=== PATIENT | female | born 1945 | race Caucasian/White ===

== ENCOUNTER 2017-08-19 02:14 | Outpatient (CLI) | payer MEDICARE ==
[~2017-08-19 02:14] MED LIST: ALBU8HFA PO; ASPI81TA52 PO; ATOR80TA PO; CARV-50 PO; CHOL10002 PO; GLIM2TAB2 PO; LEVO50TA67 PO; LISI-222 PO; MULT-1085 PO; OMEP-84 PO; SITA1TAB6 PO; VENL150C2 PO
== END 2017-08-19 23:59 | disposition home or self-care (01) ==
LOC: DIABETIC 02:14
PROVIDERS: ATTEND Physician Assistant
DX: E11.22 Type 2 diabetes mellitus with diabetic chronic kidney disease (principal); I12.9 Hypertensive chronic kidney disease with stage 1 through stage 4 chronic kidney disease, or unspecified chronic kidney disease; N18.9 Chronic kidney disease, unspecified; J44.9 Chronic obstructive pulmonary disease, unspecified; Z87.891 Personal history of nicotine dependence
CPT/HCPCS: G0108

== ENCOUNTER 2018-03-13 06:18 | Inpatient (IN) | payer MEDICARE ==
[~2018-03-13] VITALS: Ht 162.6 cm; Wt 69.5 kg
[2018-03-13 07:11] LABS: BASOPHILS # (AUTO) 0.1 X10'3 (0-0.2); BASOPHILS % (AUTO) 0.8 % (0-1); EOSINOPHILS # (AUTO) 0.6 X10'3 (0-0.9); EOSINOPHILS % (AUTO) 7.8 % (0-6); HEMATOCRIT 33.2 % (35.0-45.0); HEMOGLOBIN 10.7 g/dl (12.0-16.0); LYMPHOCYTES # (AUTO) 1.7 X10'3 (1.1-4.8); LYMPHOCYTES % (AUTO) 20.8 % (21-51); MEAN CORPUSCULAR HGB CONC 32.2 % (33.0-36.5); MEAN CORPUSCULAR VOLUME 93.1 FL (78-98); MEAN PLATELET VOLUME 6.8 FL (7.4-10.4); MONOCYTES # (AUTO) 0.7 X10'3 (0-0.9); MONOCYTES % (AUTO) 8.2 % (2-12); NEUTROPHILS # (AUTO) 5.1 X10'3 (1.8-7.7); NEUTROPHILS % (AUTO) 62.4 % (42-75); PLATELET COUNT 339 X10'3 (140-440); RED BLOOD COUNT 3.57 X10'6 (4.20-5.60); RED CELL DISTRIBUTION WIDTH 21.9 % (11.5-14.5); WHITE BLOOD COUNT 8.1 X10'3 (4.5-11.0)
[2018-03-13 07:27] LABS: ALANINE AMINOTRANSFERASE 21 U/L (12-78); ALBUMIN/GLOBULIN RATIO 1.1 (1.1-1.5); ALKALINE PHOSPHATASE 72 IU/L (46-116); ANION GAP 8 (8-16); ASPARTATE AMINO TRANSFERASE 16 U/L (10-37); BILIRUBIN,TOTAL 0.4 MG/DL (0.1-1.0); BLOOD UREA NITROGEN 8 MG/DL (7-18); BUN/CREATININE RATIO 6.3 (6.6-38.0); CALCIUM 9.6 MG/DL (8.5-10.1); CHLORIDE 101 MMOL/L (99-107); CREATININE 1.27 MG/DL (0.40-0.90); GLUCOSE 200 MG/DL (70-104); POTASSIUM 4.4 MMOL/L (3.5-5.1); SODIUM 141 MMOL/L (135-145); TOTAL CARBON DIOXIDE 31.8 MMOL/L (24-32); TOTAL PROTEIN 7.8 G/DL (6.4-8.2); eGFR 41 ML/MIN
[2018-03-13 07:37] LABS: ANISOCYTOSIS 3+; ELLIPTOCYTES FEW; PLATELET ESTIMATE NORMAL
[2018-03-13 07:55] LABS: INR 0.9 INR; PARTIAL THROMBOPLASTIN TIME 23 SECONDS (22-32); PROTHROMBIN TIME 9.7 SECONDS (9.0-12.0)
[2018-03-13] MEDS ORDERED: LORazepam 2 mg/ml vial IV ONE (08:00)
[2018-03-13] MEDS ORDERED: iohexol 350MG/ML 100ml bottle IV ONE (08:43)
[2018-03-13] MEDS ORDERED: furosemide 10 MG/1 ML 10ml inj IV ONE (10:20)
[2018-03-13] MEDS ORDERED: acetaminophen 325mg tablet PO ONE (11:10)
[2018-03-13] MEDS ORDERED: magnesium hydroxide 30ml (MOM) UD suspension PO PRN (13:10)
[2018-03-13] MEDS ORDERED: mag hydrox/Alum hydrox/simeth 30ml oral suspension PO PRN (13:10)
[2018-03-13] MEDS ORDERED: morphine 2 MG/ML inj. syringe IV PRN (13:10)
[2018-03-13] MEDS ORDERED: dextrose 50%-water 50ml dispensing syringe IV PRN ×2 (13:10)
[2018-03-13] MEDS ORDERED: HYDROcodone/acetaminophen 5mg/325mg tablet PO PRN (13:10)
[2018-03-13] MEDS ORDERED: acetaminophen 325mg tablet PO PRN (13:10)
[2018-03-13] MEDS ORDERED: glucagon, human recombinant 1mg kit SUBCUT PRN (13:10)
[2018-03-13] MEDS ORDERED: dextrose ORAL solution 15 GM/59 ML bottle PO PRN ×2 (13:10)
[2018-03-13] MEDS ORDERED: MESSAGE TO PHARMACY PO ONE (13:10)
[2018-03-13] MEDS ORDERED: ondansetron/PF 4mg/2ml inj IV PRN (13:10)
[2018-03-13 13:40] LABS: HEMOGLOBIN A1C 6.8 % (4.5-6.2)
[2018-03-13 15:26] VITALS: BP 146/81
[2018-03-13] MEDS: ipratropium/albuterol 3ml nebule NEB PRN ×2 (17:42→21:32)
[2018-03-13 18:00] VITALS: BP 101/53
[2018-03-13] MEDS ORDERED: albuterol 2.5 MG/3 ML nebule NEB PRN (21:50)
[2018-03-13 22:00] VITALS: BP 132/70
[2018-03-13] MEDS: insulin glargine (Lantus) pen - multi-dose SQ SCH (22:37)
[2018-03-14] MEDS: ipratropium/albuterol 3ml nebule NEB SCH ×7 (01:27→23:14)
[2018-03-14 02:00] VITALS: BP 126/70
[2018-03-14 07:00] VITALS: BP 136/63
[2018-03-14 07:19] LABS: BASOPHILS % (AUTO) 0.4 % (0-1); EOSINOPHILS # (AUTO) 0.8 X10'3 (0-0.9); EOSINOPHILS % (AUTO) 10.4 % (0-6); HEMATOCRIT 33.6 % (35.0-45.0); HEMOGLOBIN 10.8 g/dl (12.0-16.0); LYMPHOCYTES # (AUTO) 1.7 X10'3 (1.1-4.8); LYMPHOCYTES % (AUTO) 20.8 % (21-51); MEAN CORPUSCULAR HEMOGLOBIN 29.7 PG (27.0-31.0); MEAN CORPUSCULAR VOLUME 92.8 FL (78-98); MEAN PLATELET VOLUME 7.2 FL (7.4-10.4); MONOCYTES # (AUTO) 0.9 X10'3 (0-0.9); MONOCYTES % (AUTO) 10.8 % (2-12); NEUTROPHILS # (AUTO) 4.7 X10'3 (1.8-7.7); NEUTROPHILS % (AUTO) 57.6 % (42-75); PLATELET COUNT 296 X10'3 (140-440); RED BLOOD COUNT 3.62 X10'6 (4.20-5.60); RED CELL DISTRIBUTION WIDTH 21.5 % (11.5-14.5); WHITE BLOOD COUNT 8.1 X10'3 (4.5-11.0)
[2018-03-14 07:44] LABS: ALANINE AMINOTRANSFERASE 24 U/L (12-78); ALBUMIN 3.8 G/DL (3.4-5.0); ALKALINE PHOSPHATASE 84 IU/L (46-116); ANION GAP 9 (8-16); ASPARTATE AMINO TRANSFERASE 15 U/L (10-37); BILIRUBIN,TOTAL 0.6 MG/DL (0.1-1.0); BLOOD UREA NITROGEN 19 MG/DL (7-18); BUN/CREATININE RATIO 13.3 (6.6-38.0); CALCIUM 9.8 MG/DL (8.5-10.1); CHLORIDE 95 MMOL/L (99-107); CHOL/HDL RATIO 2.9 (0.00-4.99); CHOLESTEROL 209 MG/DL (0-200); CREATININE 1.43 MG/DL (0.40-0.90); GLUCOSE 191 MG/DL (70-104); HDL CHOLESTEROL 72 MG/DL (35-60); LDL CHOLESTEROL 118 MG/DL (50-100); SODIUM 136 MMOL/L (135-145); TOTAL CARBON DIOXIDE 31.7 MMOL/L (24-32); TOTAL PROTEIN 7.5 G/DL (6.4-8.2); TRIGLYCERIDES 190 MG/DL (20-135); eGFR 36 ML/MIN
[2018-03-14] MEDS ORDERED: furosemide 10 MG/1 ML 10ml inj IV SCH (08:00)
[2018-03-14] MEDS: enoxaparin 40mg/0.4ml syringe SUBCUT SCH (08:44)
[2018-03-14] MEDS: insulin Lispro (HumaLOG) vial - multi-dose SQ SCH ×4 (08:59→21:24)
[2018-03-14] MEDS ORDERED: LIRA0.6P2 SQ (09:11)
[2018-03-14 10:04] LABS: ANISOCYTOSIS 3+; PLATELET ESTIMATE NORMAL
[2018-03-14 10:05] LABS: ELLIPTOCYTES 1+; POIKILOCYTOSIS 1+; POLYCHROMASIA FEW
[2018-03-14 11:00] VITALS: BP 122/65
[2018-03-14] MEDS ORDERED: ALPRAZolam 0.5mg tablet PO PRN (13:45)
[2018-03-14] MEDS: levoFLOXACIN 500mg tablet PO SCH (14:19)
[2018-03-14] MEDS: methylPREDNISolone sod succ/PF 40mg inj. IV SCH ×2 (14:21→19:15)
[2018-03-14 15:00] VITALS: BP 142/77
[2018-03-14 19:00] VITALS: BP 124/67
[2018-03-14] MEDS ORDERED: furosemide 40mg/4ml inj IV SCH (19:48)
[2018-03-14] MEDS: insulin glargine (Lantus) pen - multi-dose SQ SCH (21:26)
[2018-03-14 23:00] VITALS: BP 146/68
[2018-03-15] VITALS (19 sets, daily range): BP systolic 89–134; BP diastolic 46–92
[2018-03-15] MEDS: ipratropium/albuterol 3ml nebule NEB SCH ×4 (03:59→19:06)
[2018-03-15 06:45] LABS: BASOPHILS % (AUTO) 0.3 % (0-1); EOSINOPHILS % (AUTO) 0.3 % (0-6); LYMPHOCYTES # (AUTO) 0.8 X10'3 (1.1-4.8); LYMPHOCYTES % (AUTO) 12.1 % (21-51); MEAN CORPUSCULAR HEMOGLOBIN 29.9 PG (27.0-31.0); MEAN CORPUSCULAR HGB CONC 32.3 % (33.0-36.5); MEAN CORPUSCULAR VOLUME 92.6 FL (78-98); MEAN PLATELET VOLUME 7.1 FL (7.4-10.4); MONOCYTES # (AUTO) 0.5 X10'3 (0-0.9); MONOCYTES % (AUTO) 7.9 % (2-12); NEUTROPHILS # (AUTO) 5.3 X10'3 (1.8-7.7); NEUTROPHILS % (AUTO) 79.4 % (42-75); PLATELET COUNT 341 X10'3 (140-440); RED BLOOD COUNT 3.68 X10'6 (4.20-5.60); WHITE BLOOD COUNT 6.7 X10'3 (4.5-11.0)
[2018-03-15 06:54] LABS: ALANINE AMINOTRANSFERASE 23 U/L (12-78); ALBUMIN 3.8 G/DL (3.4-5.0); ALKALINE PHOSPHATASE 85 IU/L (46-116); ANION GAP 11 (8-16); ASPARTATE AMINO TRANSFERASE 15 U/L (10-37); BILIRUBIN,TOTAL 0.6 MG/DL (0.1-1.0); BLOOD UREA NITROGEN 38 MG/DL (7-18); BUN/CREATININE RATIO 16.2 (6.6-38.0); CALCIUM 9.2 MG/DL (8.5-10.1); CHLORIDE 92 MMOL/L (99-107); CREATININE 2.34 MG/DL (0.40-0.90); GLUCOSE 354 MG/DL (70-104); POTASSIUM 4.6 MMOL/L (3.5-5.1); SODIUM 132 MMOL/L (135-145); TOTAL CARBON DIOXIDE 28.9 MMOL/L (24-32); TOTAL PROTEIN 7.8 G/DL (6.4-8.2); eGFR 20 ML/MIN
[2018-03-15] MEDS: enoxaparin 40mg/0.4ml syringe SUBCUT SCH (08:05)
[2018-03-15] MEDS: methylPREDNISolone sod succ/PF 40mg inj. IV SCH ×2 (08:06→23:30)
[2018-03-15] MEDS: insulin Lispro (HumaLOG) vial - multi-dose SQ SCH ×3 (08:16→19:21)
[2018-03-15] MEDS ORDERED: metoprolol tartrate 1mg/ml inj IV ONE ×4 (08:30→16:40)
[2018-03-15] MEDS ORDERED: ALPRAZolam 0.5mg tablet PO PRN (08:30)
[2018-03-15] MEDS: metoprolol tartrate 1mg/ml inj IV SCH ×3 (08:49→09:40)
[2018-03-15] MEDS: ALPRAZolam 0.5mg tablet PO PRN ×2 (09:22→18:20)
[2018-03-15] MEDS: levoFLOXACIN 500mg tablet PO SCH (10:54)
[2018-03-15] MEDS ORDERED: amiodarone 150mg/dext, iso-os 100 ML IV ONE (17:30)
[2018-03-15] MEDS: amiodarone/D5 360MG/200ML BAG 200 ML IV SCH ×2 (17:48→23:36)
[2018-03-15] MEDS: apixaban 5mg tablet PO SCH (22:58)
[2018-03-15] MEDS: carvedilol 6.25mg tablet PO SCH (23:00)
[2018-03-15] MEDS: lactobacillus rhamnosus 10,000 MMU CELLS/CAPSULE PO SCH (23:00)
[2018-03-15] MEDS: insulin glargine (Lantus) pen - multi-dose SQ SCH (23:29)
[2018-03-16] VITALS (12 sets, daily range): BP systolic 92–151; BP diastolic 45–78
[2018-03-16] MEDS: ipratropium/albuterol 3ml nebule NEB SCH ×3 (03:12→07:42)
[2018-03-16] MEDS: amiodarone/D5 360MG/200ML BAG 200 ML IV SCH (05:38)
[2018-03-16 07:17] LABS: BASOPHILS % (AUTO) 0 % (0-1); EOSINOPHILS # (AUTO) 0.1 X10'3 (0-0.9); EOSINOPHILS % (AUTO) 0.7 % (0-6); HEMATOCRIT 33.5 % (35.0-45.0); HEMOGLOBIN 10.9 g/dl (12.0-16.0); LYMPHOCYTES # (AUTO) 0.9 X10'3 (1.1-4.8); LYMPHOCYTES % (AUTO) 8.7 % (21-51); MEAN CORPUSCULAR HEMOGLOBIN 30.2 PG (27.0-31.0); MEAN CORPUSCULAR HGB CONC 32.6 % (33.0-36.5); MEAN CORPUSCULAR VOLUME 92.8 FL (78-98); MEAN PLATELET VOLUME 7.3 FL (7.4-10.4); MONOCYTES # (AUTO) 0.3 X10'3 (0-0.9); MONOCYTES % (AUTO) 3.4 % (2-12); NEUTROPHILS # (AUTO) 8.8 X10'3 (1.8-7.7); NEUTROPHILS % (AUTO) 87.2 % (42-75); PLATELET COUNT 326 X10'3 (140-440); RED BLOOD COUNT 3.61 X10'6 (4.20-5.60); RED CELL DISTRIBUTION WIDTH 22.4 % (11.5-14.5); WHITE BLOOD COUNT 10.1 X10'3 (4.5-11.0)
[2018-03-16 07:35] LABS: ALANINE AMINOTRANSFERASE 16 U/L (12-78); ALBUMIN 3.4 G/DL (3.4-5.0); ALBUMIN/GLOBULIN RATIO 0.9 (1.1-1.5); ALKALINE PHOSPHATASE 72 IU/L (46-116); ANION GAP 9 (8-16); ASPARTATE AMINO TRANSFERASE 18 U/L (10-37); BILIRUBIN,TOTAL 0.4 MG/DL (0.1-1.0); BLOOD UREA NITROGEN 53 MG/DL (7-18); BUN/CREATININE RATIO 22.5 (6.6-38.0); CHLORIDE 93 MMOL/L (99-107); CREATININE 2.36 MG/DL (0.40-0.90); GLUCOSE 333 MG/DL (70-104); POTASSIUM 5.1 MMOL/L (3.5-5.1); SODIUM 132 MMOL/L (135-145); TOTAL CARBON DIOXIDE 30.4 MMOL/L (24-32); eGFR 20 ML/MIN
[2018-03-16] MEDS: methylPREDNISolone sod succ/PF 40mg inj. IV SCH ×2 (07:38→21:38)
[2018-03-16] MEDS: carvedilol 6.25mg tablet PO SCH (07:38)
[2018-03-16] MEDS: lactobacillus rhamnosus 10,000 MMU CELLS/CAPSULE PO SCH ×2 (07:38→21:37)
[2018-03-16] MEDS: apixaban 5mg tablet PO SCH ×2 (07:38→21:37)
[2018-03-16] MEDS: insulin Lispro (HumaLOG) vial - multi-dose SQ SCH ×3 (09:49→21:58)
[2018-03-16] MEDS ORDERED: levalbuterol 0.63mg/3ml nebule IH PRN (10:35)
[2018-03-16] MEDS: levalbuterol 0.63mg/3ml nebule IH SCH ×2 (16:04→20:36)
[2018-03-16] MEDS ORDERED: lisinopril 5mg tablet PO SCH (21:00)
[2018-03-16] MEDS: atorvastatin 20mg tablet PO SCH (21:37)
[2018-03-16] MEDS: lisinopril 5mg tablet PO SCH (21:38)
[2018-03-16] MEDS: levoTHYROXINE 25mcg tablet PO SCH (21:46)
[2018-03-16] MEDS: insulin glargine (Lantus) pen - multi-dose SQ SCH (21:52)
[2018-03-16] MEDS: aspirin 81mg tablet.DR PO SCH (22:01)
[2018-03-16] MEDS: carVEDilol 12.5mg tablet PO SCH (22:10)
[2018-03-17 03:00] VITALS: BP 109/59
[2018-03-17] MEDS: levalbuterol 0.63mg/3ml nebule IH SCH ×4 (03:06→20:41)
[2018-03-17 05:31] LABS: BASOPHILS % (AUTO) 0 % (0-1); EOSINOPHILS % (AUTO) 0 % (0-6); HEMATOCRIT 32.9 % (35.0-45.0); HEMOGLOBIN 10.6 g/dl (12.0-16.0); LYMPHOCYTES # (AUTO) 0.9 X10'3 (1.1-4.8); LYMPHOCYTES % (AUTO) 9.8 % (21-51); MEAN CORPUSCULAR HGB CONC 32.3 % (33.0-36.5); MEAN PLATELET VOLUME 7.2 FL (7.4-10.4); MONOCYTES # (AUTO) 0.3 X10'3 (0-0.9); MONOCYTES % (AUTO) 3.8 % (2-12); NEUTROPHILS # (AUTO) 7.8 X10'3 (1.8-7.7); NEUTROPHILS % (AUTO) 86.4 % (42-75); PLATELET COUNT 319 X10'3 (140-440); RED BLOOD COUNT 3.54 X10'6 (4.20-5.60); RED CELL DISTRIBUTION WIDTH 22.2 % (11.5-14.5)
[2018-03-17 05:47] LABS: ALANINE AMINOTRANSFERASE 18 U/L (12-78); ALBUMIN 3.3 G/DL (3.4-5.0); ALBUMIN/GLOBULIN RATIO 0.9 (1.1-1.5); ALKALINE PHOSPHATASE 71 IU/L (46-116); ANION GAP 11 (8-16); ASPARTATE AMINO TRANSFERASE 17 U/L (10-37); BILIRUBIN,TOTAL 0.5 MG/DL (0.1-1.0); BLOOD UREA NITROGEN 61 MG/DL (7-18); BUN/CREATININE RATIO 27.4 (6.6-38.0); CHLORIDE 97 MMOL/L (99-107); CREATININE 2.23 MG/DL (0.40-0.90); GLUCOSE 328 MG/DL (70-104); POTASSIUM 4.3 MMOL/L (3.5-5.1); SODIUM 136 MMOL/L (135-145); TOTAL PROTEIN 6.8 G/DL (6.4-8.2); eGFR 21 ML/MIN
[2018-03-17 06:00] VITALS: BP 76/52
[2018-03-17 06:28] LABS: ANISOCYTOSIS 3+; ELLIPTOCYTES FEW; PLATELET ESTIMATE NORMAL
[2018-03-17] MEDS: methylPREDNISolone sod succ/PF 40mg inj. IV SCH ×2 (07:18→20:55)
[2018-03-17] MEDS: levoTHYROXINE 25mcg tablet PO SCH (07:19)
[2018-03-17] MEDS: lactobacillus rhamnosus 10,000 MMU CELLS/CAPSULE PO SCH ×2 (07:21→20:55)
[2018-03-17] MEDS: apixaban 5mg tablet PO SCH ×2 (07:21→20:55)
[2018-03-17] MEDS: aspirin 81mg tablet.DR PO SCH (07:21)
[2018-03-17] MEDS: venlafaxine XR 75mg capsule (Q24H) PO SCH (07:21)
[2018-03-17] MEDS: lisinopril 5mg tablet PO SCH (08:00)
[2018-03-17] MEDS: carVEDilol 12.5mg tablet PO SCH ×2 (08:00→20:55)
[2018-03-17 11:00] VITALS: BP 138/69
[2018-03-17] MEDS ORDERED: levoFLOXACIN 500mg tablet PO SCH (11:00)
[2018-03-17] MEDS: insulin Lispro (HumaLOG) vial - multi-dose SQ SCH ×2 (13:04→18:47)
[2018-03-17 15:00] VITALS: BP 117/61
[2018-03-17 18:40] VITALS: BP 136/55
[2018-03-17] MEDS: atorvastatin 20mg tablet PO SCH (20:56)
[2018-03-17] MEDS: insulin glargine (Lantus) pen - multi-dose SQ SCH (21:40)
[2018-03-17 23:00] VITALS: BP 121/52
[2018-03-18 03:00] VITALS: BP 110/57
[2018-03-18] MEDS: levalbuterol 0.63mg/3ml nebule IH SCH ×2 (03:41→09:24)
[2018-03-18 06:00] VITALS: BP 125/64
[2018-03-18 06:23] LABS: BASOPHILS % (AUTO) 0.2 % (0-1); EOSINOPHILS % (AUTO) 0 % (0-6); HEMATOCRIT 30.7 % (35.0-45.0); HEMOGLOBIN 10.1 g/dl (12.0-16.0); LYMPHOCYTES # (AUTO) 1.2 X10'3 (1.1-4.8); LYMPHOCYTES % (AUTO) 14.7 % (21-51); MEAN CORPUSCULAR HEMOGLOBIN 30.4 PG (27.0-31.0); MEAN CORPUSCULAR HGB CONC 32.7 % (33.0-36.5); MEAN CORPUSCULAR VOLUME 92.9 FL (78-98); MEAN PLATELET VOLUME 7.2 FL (7.4-10.4); MONOCYTES # (AUTO) 0.4 X10'3 (0-0.9); MONOCYTES % (AUTO) 4.9 % (2-12); NEUTROPHILS # (AUTO) 6.6 X10'3 (1.8-7.7); NEUTROPHILS % (AUTO) 80.2 % (42-75); PLATELET COUNT 298 X10'3 (140-440); RED BLOOD COUNT 3.31 X10'6 (4.20-5.60); RED CELL DISTRIBUTION WIDTH 22.2 % (11.5-14.5); WHITE BLOOD COUNT 8.2 X10'3 (4.5-11.0)
[2018-03-18 06:30] LABS: ALANINE AMINOTRANSFERASE 20 U/L (12-78); ALBUMIN 3.1 G/DL (3.4-5.0); ALBUMIN/GLOBULIN RATIO 0.9 (1.1-1.5); ALKALINE PHOSPHATASE 60 IU/L (46-116); ANION GAP 8 (8-16); ASPARTATE AMINO TRANSFERASE 15 U/L (10-37); BILIRUBIN,TOTAL 0.5 MG/DL (0.1-1.0); BLOOD UREA NITROGEN 60 MG/DL (7-18); BUN/CREATININE RATIO 31.3 (6.6-38.0); CALCIUM 8.8 MG/DL (8.5-10.1); CHLORIDE 100 MMOL/L (99-107); CREATININE 1.92 MG/DL (0.40-0.90); GLUCOSE 305 MG/DL (70-104); POTASSIUM 4.7 MMOL/L (3.5-5.1); SODIUM 136 MMOL/L (135-145); TOTAL CARBON DIOXIDE 28.2 MMOL/L (24-32); TOTAL PROTEIN 6.4 G/DL (6.4-8.2); eGFR 26 ML/MIN
[2018-03-18 06:43] LABS: ANISOCYTOSIS 3+; PLATELET ESTIMATE NORMAL
[2018-03-18] MEDS: lactobacillus rhamnosus 10,000 MMU CELLS/CAPSULE PO SCH (07:13)
[2018-03-18] MEDS: levoTHYROXINE 25mcg tablet PO SCH (07:13)
[2018-03-18] MEDS: lisinopril 5mg tablet PO SCH (07:13)
[2018-03-18] MEDS: methylPREDNISolone sod succ/PF 40mg inj. IV SCH (07:13)
[2018-03-18] MEDS: carVEDilol 12.5mg tablet PO SCH (07:13)
[2018-03-18] MEDS: apixaban 5mg tablet PO SCH (07:14)
[2018-03-18] MEDS: venlafaxine XR 75mg capsule (Q24H) PO SCH (07:14)
[2018-03-18] MEDS: aspirin 81mg tablet.DR PO SCH (07:14)
[2018-03-18] MEDS: insulin Lispro (HumaLOG) vial - multi-dose SQ SCH (09:33)
[2018-03-18] MEDS ORDERED: APIX5TAB3 PO (10:20)
[2018-03-18] MEDS ORDERED: LEVO500T89 PO (10:20)
[2018-03-18] MEDS ORDERED: PRED20TA PO (10:20)
[2018-03-18] MEDS ORDERED: LEVA0.6319 IH (10:20)
[2018-03-18 11:00] VITALS: BP 127/70
== END 2018-03-18 13:15 | disposition home health service (06) | DRG 291 ==
LOC: ER 06:18 → ED HOLD 13:09 → PCU 3S 15:25
PROVIDERS: ADMIT Internal Medicine; ATTEND Family Medicine
PROC: B32T1ZZ Computerized Tomography (CT Scan) of Left Pulmonary Artery using Low Osmolar Contrast (ICD-10-PCS; principal; 2018-03-13)
PROC: B3201ZZ Computerized Tomography (CT Scan) of Thoracic Aorta using Low Osmolar Contrast (ICD-10-PCS; 2018-03-13)
PROC: B32S1ZZ Computerized Tomography (CT Scan) of Right Pulmonary Artery using Low Osmolar Contrast (ICD-10-PCS; 2018-03-13)
DX: I13.0 Hypertensive heart and chronic kidney disease with heart failure and stage 1 through stage 4 chronic kidney disease, or unspecified chronic kidney disease (principal); I50.23 Acute on chronic systolic (congestive) heart failure; N17.9 Acute kidney failure, unspecified; J44.1 Chronic obstructive pulmonary disease with (acute) exacerbation; R07.89 Other chest pain; E11.22 Type 2 diabetes mellitus with diabetic chronic kidney disease; N18.3 Chronic kidney disease, stage 3 (moderate); D64.9 Anemia, unspecified; E03.9 Hypothyroidism, unspecified; E78.00 Pure hypercholesterolemia, unspecified; E78.5 Hyperlipidemia, unspecified; I25.10 Atherosclerotic heart disease of native coronary artery without angina pectoris; I25.5 Ischemic cardiomyopathy; I48.91 Unspecified atrial fibrillation; F17.290 Nicotine dependence, other tobacco product, uncomplicated; M19.90 Unspecified osteoarthritis, unspecified site; Z96.642 Presence of left artificial hip joint; Z90.710 Acquired absence of both cervix and uterus; Z90.49 Acquired absence of other specified parts of digestive tract; Z95.1 Presence of aortocoronary bypass graft; Z95.810 Presence of automatic (implantable) cardiac defibrillator; Z88.0 Allergy status to penicillin; Z79.899 Other long term (current) drug therapy; Z79.82 Long term (current) use of aspirin; Z79.01 Long term (current) use of anticoagulants; Z82.49 Family history of ischemic heart disease and other diseases of the circulatory system
CPT/HCPCS: 36415; 71045; 71275; 80053; 80061; 82948; 83036; 83880; 84443; 84484; 85025; 85610; 85730; 87040; 93005; 93306; 94640; 94667; 94760; 96374; 96375; 99285; J0282; J1650; J1815; J1940; J2060; J2920; J3490; J7614; Q9967

== ENCOUNTER 2018-06-26 04:58 | Outpatient (CLI) | payer MEDICARE ==
[~2018-06-26 04:58] MED LIST changes: -ALBU8HFA PO; +APIX5TAB3 PO; -GLIM2TAB2 PO; +LEVA0.6319 IH; +LEVO500T89 PO; +LIRA0.6P2 SQ; -SITA1TAB6 PO
== END 2018-06-26 23:59 | disposition home or self-care (01) ==
LOC: DIABETIC 04:58
PROVIDERS: ATTEND Internal Medicine Endocrinology, Diabetes & Metabolism
DX: E11.65 Type 2 diabetes mellitus with hyperglycemia (principal); Z79.4 Long term (current) use of insulin; Z79.82 Long term (current) use of aspirin; Z72.89 Other problems related to lifestyle; Z87.891 Personal history of nicotine dependence
CPT/HCPCS: G0108

== ENCOUNTER 2018-10-30 04:30 | Outpatient (CLI) | payer MEDICARE | END 2018-10-30 23:59 | disposition home or self-care (01) | LOC: DIABETIC 04:30 | PROVIDERS: ATTEND Internal Medicine Endocrinology, Diabetes & Metabolism | DX: E11.9 Type 2 diabetes mellitus without complications (principal) | CPT/HCPCS: G0108 ==

== ENCOUNTER 2020-05-11 11:34 | Outpatient (CLI) | payer MEDICARE ==
[~2020-05-11 11:34] MED LIST changes: +AMIO200T61 PO; +ARIP5TAB60 PO; -CARV-50 PO; +CARV6.253 PO; +CYAN100097 PO; +DONE10TA7 PO; +GLIP10TA11 PO; -LEVO500T89 PO; -LEVO50TA67 PO; +LEVO75TA7 PO; -LIRA0.6P2 SQ; -LISI-222 PO; +LOSA25TA41 PO; +MAGN400C PO; +MELA5TAB12 PO; +SITA100T11 PO; +SPIR25TA PO; +TRAM50TA2 PO
[2020-05-11] MEDS ORDERED: iohexol 350MG/ML 100ml bottle IV ONE (12:41)
[2020-05-11 13:04] LABS: BASOPHILS # (AUTO) 0.1 X10'3 (0-0.2); BASOPHILS % (AUTO) 1.5 % (0-1); EOSINOPHILS # (AUTO) 0.2 X10'3 (0-0.9); EOSINOPHILS % (AUTO) 4.7 % (0-6); HEMATOCRIT 31.1 % (35.0-45.0); HEMOGLOBIN 10.3 g/dl (12.0-16.0); LYMPHOCYTES # (AUTO) 1.5 X10'3 (1.1-4.8); LYMPHOCYTES % (AUTO) 30.8 % (21-51); MEAN CORPUSCULAR HGB CONC 33.1 g/dL (33.0-36.5); MEAN CORPUSCULAR VOLUME 99.8 FL (78-98); MEAN PLATELET VOLUME 6.7 FL (7.4-10.4); MONOCYTES # (AUTO) 0.6 X10'3 (0-0.9); MONOCYTES % (AUTO) 11.2 % (2-12); NEUTROPHILS # (AUTO) 2.6 X10'3 (1.8-7.7); NEUTROPHILS % (AUTO) 51.8 % (42-75); PLATELET COUNT 236 X10'3 (140-440); RED BLOOD COUNT 3.11 X10'6 (4.20-5.60); RED CELL DISTRIBUTION WIDTH 15.3 % (11.5-14.5)
[2020-05-11 13:15] LABS: ALANINE AMINOTRANSFERASE 34 U/L (12-78); ALBUMIN/GLOBULIN RATIO 1.1 (1.1-1.5); ALKALINE PHOSPHATASE 60 IU/L (46-116); ANION GAP 7 (8-16); ASPARTATE AMINO TRANSFERASE 26 U/L (10-37); BILIRUBIN,TOTAL 0.6 MG/DL (0.1-1.0); BLOOD UREA NITROGEN 19 MG/DL (7-18); BUN/CREATININE RATIO 9.6 (6.6-38.0); CALCIUM 8.8 MG/DL (8.5-10.1); CHLORIDE 99 MMOL/L (99-107); CREATININE 1.97 MG/DL (0.40-0.90); GLUCOSE 201 MG/DL (70-104); POTASSIUM 4.4 MMOL/L (3.5-5.1); SODIUM 135 MMOL/L (135-145); TOTAL CARBON DIOXIDE 29.5 MMOL/L (24-32); TOTAL PROTEIN 7.5 G/DL (6.4-8.2); eGFR 25 ML/MIN
== END 2020-05-11 23:59 | disposition home or self-care (01) ==
LOC: 64 CT 11:34
PROVIDERS: ATTEND Internal Medicine Cardiovascular Disease
DX: Z00.00 Encounter for general adult medical examination without abnormal findings (principal); I50.22 Chronic systolic (congestive) heart failure; I48.20 Chronic atrial fibrillation, unspecified
CPT/HCPCS: 36415; 80053; 85025; Q9967

== ENCOUNTER 2020-05-23 09:36 | Day surgery (SDC) | payer MEDICARE ==
[~2020-05-23] VITALS: Ht 160 cm; Wt 73.6 kg
[2020-05-23] MEDS ORDERED: normal saline 1000ml 1,000 ML IV SCH (10:10)
[2020-05-23 10:15] VITALS: BP 104/61
[2020-05-23] MEDS ORDERED: iohexol 350MG/ML 100ml bottle IV ONE (11:47)
[2020-05-23] MEDS ORDERED: PANT-47 PO (12:17)
[2020-05-23] MEDS ORDERED: VENL75TA4 PO (12:17)
[2020-05-23] MEDS ORDERED: ATOR40TA PO (12:17)
[2020-05-23] MEDS ORDERED: FURO-150 PO (12:27)
[2020-05-23] MEDS ORDERED: FERR28TA PO (12:27)
[2020-05-23] MEDS ORDERED: SERT100T10 PO (12:27)
[2020-05-23] MEDS ORDERED: AMIO200T27 PO (12:27)
[2020-05-23] MEDS ORDERED: LOSA25TA41 PO (12:27)
[2020-05-23 13:06] VITALS: BP 136/65
[2020-05-23 13:51] VITALS: BP 139/57
[2020-05-23 14:56] VITALS: BP 116/51
== END 2020-05-23 15:25 | disposition home or self-care (01) ==
LOC: SSTAY O 09:36
PROVIDERS: ATTEND Internal Medicine Cardiovascular Disease
DX: R06.02 Shortness of breath (principal); I35.0 Nonrheumatic aortic (valve) stenosis; I25.10 Atherosclerotic heart disease of native coronary artery without angina pectoris; J98.4 Other disorders of lung; Z95.1 Presence of aortocoronary bypass graft; Z88.0 Allergy status to penicillin; Z88.5 Allergy status to narcotic agent; Z79.899 Other long term (current) drug therapy
CPT/HCPCS: 75574; Q9967

== ENCOUNTER 2021-03-21 14:32 | Inpatient (IN) | payer MEDICARE ==
[~2021-03-21] VITALS: Ht 160 cm; Wt 73.0 kg
[~2021-03-21 14:32] MED LIST changes: +AMIO200T27 PO; -AMIO200T61 PO; -APIX5TAB3 PO; -ARIP5TAB60 PO; -ASPI81TA52 PO; +ATOR40TA PO; -ATOR80TA PO; -DONE10TA7 PO; +FERR28TA PO; +FURO-150 PO; -GLIP10TA11 PO; -LEVA0.6319 IH; -OMEP-84 PO; +PANT-47 PO; +SERT-434 PO; -SITA100T11 PO; -SPIR25TA PO; -VENL150C2 PO; +VENL75TA4 PO
[2021-03-21] MEDS ORDERED: aspirin 81mg tab.chew PO ONE (14:40)
[2021-03-21 15:09] LABS: BASOPHILS % (AUTO) 0.6 % (0-1); EOSINOPHILS # (AUTO) 0.3 X10'3 (0-0.9); EOSINOPHILS % (AUTO) 4.2 % (0-6); HEMATOCRIT 33.4 % (35.0-45.0); HEMOGLOBIN 11.5 g/dl (12.0-16.0); LYMPHOCYTES # (AUTO) 1.5 X10'3 (1.1-4.8); LYMPHOCYTES % (AUTO) 20.4 % (21-51); MEAN CORPUSCULAR HEMOGLOBIN 34.3 PG (27.0-31.0); MEAN CORPUSCULAR HGB CONC 34.3 g/dL (33.0-36.5); MEAN CORPUSCULAR VOLUME 99.9 FL (78-98); MONOCYTES # (AUTO) 0.7 X10'3 (0-0.9); MONOCYTES % (AUTO) 9.9 % (2-12); NEUTROPHILS # (AUTO) 4.7 X10'3 (1.8-7.7); NEUTROPHILS % (AUTO) 64.9 % (42-75); PLATELET COUNT 190 X10'3 (140-440); RED BLOOD COUNT 3.34 X10'6 (4.20-5.60); RED CELL DISTRIBUTION WIDTH 14.9 % (11.5-14.5); WHITE BLOOD COUNT 7.2 X10'3 (4.5-11.0)
[2021-03-21 15:21] LABS: ALANINE AMINOTRANSFERASE 44 U/L (12-78); ALBUMIN 3.9 G/DL (3.4-5.0); ALKALINE PHOSPHATASE 60 IU/L (46-116); ANION GAP 8 (8-16); ASPARTATE AMINO TRANSFERASE 30 U/L (10-37); BILIRUBIN,TOTAL 0.9 MG/DL (0.1-1.0); BLOOD UREA NITROGEN 25 MG/DL (7-18); BUN/CREATININE RATIO 14.8 (6.6-38.0); CALCIUM 9.4 MG/DL (8.5-10.1); CHLORIDE 101 MMOL/L (99-107); CREATININE 1.69 MG/DL (0.40-0.90); GLUCOSE 130 MG/DL (70-104); POTASSIUM 4.5 MMOL/L (3.5-5.1); SODIUM 141 MMOL/L (135-145); TOTAL CARBON DIOXIDE 32.1 MMOL/L (24-32); eGFR 29 ML/MIN
[2021-03-21 15:29] LABS: MAGNESIUM 2.2 MG/DL (1.5-2.4)
[2021-03-21] MEDS ORDERED: famotidine 20mg tablet PO ONE (15:30)
[2021-03-21] MEDS ORDERED: mag hydrox/Alum hydrox/simeth 30ml oral suspension PO ONE (15:30)
[2021-03-21] MEDS ORDERED: LIDOcaine Viscous 15ml cup MM ONE (15:30)
[2021-03-21] MEDS ORDERED: MAGN300C PO (15:45)
[2021-03-21] MEDS ORDERED: FERR-119 PO (15:45)
[2021-03-21] MEDS ORDERED: MELA10TA2 PO (15:45)
[2021-03-21] MEDS ORDERED: LINA5TAB4 PO (15:45)
[2021-03-21] MEDS ORDERED: INSU100I31 SQ (15:45)
[2021-03-21] MEDS ORDERED: VENL37.589 PO (15:45)
[2021-03-21] MEDS ORDERED: ATOR80TA PO (15:45)
[2021-03-21] MEDS ORDERED: PREVAGEN PO (15:45)
[2021-03-21] MEDS ORDERED: nitroGLYCERIN 0.4mg SUBLingual tab SL PRN ×2 (15:50→18:50)
[2021-03-21] MEDS ORDERED: ondansetron/PF 4mg/2ml inj IV PRN (18:45)
[2021-03-21] MEDS ORDERED: mag hydrox/Alum hydrox/simeth 30ml oral suspension PO PRN (18:45)
[2021-03-21] MEDS ORDERED: potassium Cl 20 mEq SR tablet PO PRN ×2 (18:45)
[2021-03-21] MEDS ORDERED: magnesium hydroxide 30ml (MOM) UD suspension PO PRN (18:45)
[2021-03-21] MEDS ORDERED: acetaminophen 325mg tablet PO PRN (18:45)
[2021-03-21] MEDS ORDERED: PERFLUTREN PROTEIN-A MICROSPHR (Optison) 0.22 MG/ML 3ML VIAL IV ONE (18:45)
[2021-03-21] MEDS ORDERED: potassium Cl 40MEQ/1/2NS 520ml 520 ML IV PRN ×2 (18:45)
[2021-03-21] MEDS ORDERED: metoprolol tartrate 1mg/ml inj IV PRN (18:50)
[2021-03-21] MEDS ORDERED: traMADol 50MG tablet PO PRN (18:50)
[2021-03-21] MEDS ORDERED: aminophylline 250mg/10ml inj. IV PRN (18:50)
[2021-03-21] MEDS ORDERED: regadenoson 0.4mg/5ml syringe IV ONE (18:50)
[2021-03-21] MEDS: heparin, porcine 5000 units/ml vial SQ SCH (19:28)
[2021-03-21] MEDS: atorvastatin 20mg tablet PO SCH (19:28)
[2021-03-21] MEDS: pantoprazole 40mg Tablet.DR PO SCH (19:28)
[2021-03-21] MEDS: docusate sod 100mg capsule PO SCH (19:28)
[2021-03-21] MEDS ORDERED: K and/or MAG REPLACEMENT MC SCH (20:00)
[2021-03-21] MEDS ORDERED: nitroGLYCERIN 0.1mg/hour patch TD SCH (22:00)
[2021-03-21 22:30] VITALS: BP 140/60
[2021-03-22] VITALS (13 sets, daily range): BP systolic 109–137; BP diastolic 45–69
[2021-03-22 03:57] LABS: BASOPHILS % (AUTO) 0.4 % (0-1); EOSINOPHILS # (AUTO) 0.2 X10'3 (0-0.9); EOSINOPHILS % (AUTO) 2.7 % (0-6); HEMATOCRIT 31.5 % (35.0-45.0); HEMOGLOBIN 10.9 g/dl (12.0-16.0); LYMPHOCYTES # (AUTO) 1.6 X10'3 (1.1-4.8); LYMPHOCYTES % (AUTO) 21.9 % (21-51); MEAN CORPUSCULAR HEMOGLOBIN 34.2 PG (27.0-31.0); MEAN CORPUSCULAR HGB CONC 34.5 g/dL (33.0-36.5); MEAN CORPUSCULAR VOLUME 98.9 FL (78-98); MONOCYTES # (AUTO) 0.8 X10'3 (0-0.9); MONOCYTES % (AUTO) 11.4 % (2-12); NEUTROPHILS # (AUTO) 4.6 X10'3 (1.8-7.7); NEUTROPHILS % (AUTO) 63.6 % (42-75); PLATELET COUNT 167 X10'3 (140-440); RED BLOOD COUNT 3.18 X10'6 (4.20-5.60); RED CELL DISTRIBUTION WIDTH 14.3 % (11.5-14.5); WHITE BLOOD COUNT 7.2 X10'3 (4.5-11.0)
[2021-03-22 04:13] LABS: ALANINE AMINOTRANSFERASE 41 U/L (12-78); ALBUMIN 3.4 G/DL (3.4-5.0); ALBUMIN/GLOBULIN RATIO 0.9 (1.1-1.5); ALKALINE PHOSPHATASE 52 IU/L (46-116); ANION GAP 7 (8-16); ASPARTATE AMINO TRANSFERASE 24 U/L (10-37); BILIRUBIN,TOTAL 0.8 MG/DL (0.1-1.0); BLOOD UREA NITROGEN 24 MG/DL (7-18); BUN/CREATININE RATIO 14.9 (6.6-38.0); CALCIUM 8.9 MG/DL (8.5-10.1); CHLORIDE 101 MMOL/L (99-107); CREATININE 1.61 MG/DL (0.40-0.90); GLUCOSE 109 MG/DL (70-104); POTASSIUM 3.9 MMOL/L (3.5-5.1); SODIUM 140 MMOL/L (135-145); TOTAL CARBON DIOXIDE 31.9 MMOL/L (24-32); TOTAL PROTEIN 7.2 G/DL (6.4-8.2); eGFR 31 ML/MIN
[2021-03-22] MEDS ORDERED: levoTHYROXINE 75mcg tablet PO SCH (07:00)
[2021-03-22] MEDS ORDERED: carvedilol 6.25mg tablet PO SCH (07:30)
[2021-03-22] MEDS ORDERED: amiodarone 200mg tablet PO SCH (08:00)
[2021-03-22] MEDS ORDERED: furosemide 20MG tablet PO SCH (08:00)
[2021-03-22] MEDS ORDERED: losartan 25mg tablet PO SCH (08:00)
[2021-03-22] MEDS ORDERED: sertraline 50mg tablet PO SCH (08:00)
[2021-03-22] MEDS ORDERED: venlafaxine XR 37.5mg cap (Q24H) PO SCH (08:00)
[2021-03-22] MEDS: heparin, porcine 5000 units/ml vial SQ SCH (08:45)
[2021-03-22] MEDS: atorvastatin 20mg tablet PO SCH (08:45)
[2021-03-22] MEDS: pantoprazole 40mg Tablet.DR PO SCH (08:46)
[2021-03-22] MEDS: docusate sod 100mg capsule PO SCH (08:47)
--- NOTE | 2021-03-22 09:00 | NUR ---
MD Rush rounded and discussed dx and tx plan with pt. PLan to have nicholas first still
[2021-03-22] MEDS ORDERED: FLU VACC QS2021-22(6MOS UP)/PF 60 MCG/0.5 ML SYRINGE IM ONE (10:00)
--- NOTE | 2021-03-22 12:20 | NUR ---
pt is back fom nuc med nicholas. awake, stable , no c/o pain
--- NOTE | 2021-03-22 12:36 | NUR ---
PAGER ID: [phone] MESSAGE: [id number] Mickie Stevenson, present- nicholas results up. ok to resume diet? [id number]
--- NOTE | 2021-03-22 15:30 | NUR ---
Aprox this time disch pt to her husbands car. Reviewed disch instructions with pt and her , iv removed and cath tip intact. pt dressed self i and amb to w/c steady, vss, deny c/p or sob.
== END 2021-03-22 15:37 | disposition home or self-care (01) | DRG 392 ==
LOC: ER 14:32 → ED HOLD 18:47 → PCU 3S 23:05
PROVIDERS: ADMIT Internal Medicine; ATTEND Family Medicine
PROC: 4A02XM4 Measurement of Cardiac Total Activity, External Approach (ICD-10-PCS; principal; 2021-03-22)
PROC: 3E073KZ Introduction of Other Diagnostic Substance into Coronary Artery, Percutaneous Approach (ICD-10-PCS; 2021-03-22)
DX: K21.9 Gastro-esophageal reflux disease without esophagitis (principal); E11.9 Type 2 diabetes mellitus without complications; E78.5 Hyperlipidemia, unspecified; E78.00 Pure hypercholesterolemia, unspecified; J44.9 Chronic obstructive pulmonary disease, unspecified; I25.10 Atherosclerotic heart disease of native coronary artery without angina pectoris; I48.91 Unspecified atrial fibrillation; I50.9 Heart failure, unspecified; Z20.822 Contact with and (suspected) exposure to COVID-19; I11.0 Hypertensive heart disease with heart failure; Z95.810 Presence of automatic (implantable) cardiac defibrillator; Z95.1 Presence of aortocoronary bypass graft; Z82.49 Family history of ischemic heart disease and other diseases of the circulatory system; Z88.0 Allergy status to penicillin; Z87.891 Personal history of nicotine dependence; Z88.5 Allergy status to narcotic agent; Z95.5 Presence of coronary angioplasty implant and graft; Z79.899 Other long term (current) drug therapy; Z90.49 Acquired absence of other specified parts of digestive tract
CPT/HCPCS: 36415; 71045; 78452; 80053; 83735; 83880; 84484; 85025; 87081; 87635; 93005; 93017; 93306; 99285; A9500; G0378; J0280; J1644; J2785